=== PATIENT | female | born 1995 | race Caucasian/White ===

== ENCOUNTER 2023-06-25 09:53 | Emergency (ER) | payer OTHER, SELFPAY ==
[2023-06-25 09:54] VITALS: BP 115/73
--- NOTE | 2023-06-25 11:17 | ED.GENMED ---
History of Present Illness
General
Chief Complaint: Abdominal Symptoms
Source: patient
Exam Limitations: none
Time Seen by Provider: 06/25/23 10:31
Travel History
Have you had any contact with someone who has COVID-19?: No
Do you have any symptoms of coronavirus? Fever > 100 degrees, chills, cough, shortness of breath, sore throat, loss of taste or smell, muscle aches, or headache?: No
History of Present Illness
History of Present Illness:
Vomiting and diarrhea. Significant overnight. Family member with similar symptoms early in the week. , 10 weeks . No significant issues. Does not feel like morning sickness. Denies significant abdominal pain. No vaginal
bleeding. No unusual food ingestion or travel history. No recent antibiotics.
Past History
Past History
ED Past Medical History: None
ED Past Surgical History: Other ([place] teeth extraction)
Review of Systems
Review of Systems
All Other Systems: Not applicable
Constitutional: Denies fever
ABD/GI: Denies abdominal pain
: Reports no symptoms
Phy Exam
Physical Exam
Physical Exam:
GENERAL: Alert and oriented in no apparent distress
EYE: Orbits normal.
NECK: Supple
CARDIAC: Regular rate and rhythm without any obvious murmurs.
LUNGS: Clear breath sounds,normal
ABDOMEN: Soft, without focal tenderness or distention
NEUROLOGICAL: Alert and oriented , grossly non-focal
SKIN: Warm and dry, no rash or lesion, no discoloration, skin intact.
MUSCULOSKELETAL: No edema,no deformity.Good color
PSYCH: Normal and appropriate interaction.
Course
Orders/Labs/Results
Orders:
Orders
06/25/23 11:01
IV Insert/Care/Rem.- Treatment PRN
0.9% Sodium Chloride 1000 ml [Nss] 1,000 ml IV BOLUS
0.9% Sodium Chloride 1000 ml [Nss] 1,000 ml IV BOLUS
06/25/23 11:03
US 1st Trimester Urgent
Comment:
Reason For Exam: Abdominal pain/10 weeks
06/25/23 11:22
Complete Blood Count/With Diff Urgent
Comprehensive Metabolic Panel Urgent
Free T4 Urgent
Lipase Urgent
TSH Reflex To Free T4 Urgent
06/25/23 12:17
Metoclopramide [Reglan] 10 mg IV NOW STA
Abnormal Lab Results
06/25/23
11:22
Absolute Neuts (auto) 9.0 H 10^3/uL
(1.4-6.5)
Absolute Lymphs (auto) 0.3 L 10^3/uL
(1.2-3.4)
Neutrophils % 93.1 H %
(42.2-75.2)
Lymphocytes % 3.1 L %
(20.5-51.1)
Sodium 132 L mmol/L
(135-145)
Creatinine 0.5 L mg/dL
(0.6-1.0)
Glucose 103 H mg/dl
(70-99)
Total Bilirubin 1.8 H mg/dl
(0.2-1.3)
TSH (Reflex) 0.25 L uIU/ml
(0.47-4.68)
06/25/23 11:22
06/25/23 11:22
Vital Signs
Initial and Last Documented VS:
Initial Vital Signs
Temp Pulse Resp BP Pulse Ox
98.6 F 114 18 115/73 98
06/25/23 09:54 06/25/23 09:54 06/25/23 09:54 06/25/23 09:54 06/25/23 09:54
Last Documented Vital Signs
Temp Pulse Resp BP Pulse Ox
100 F 97 16 119/72 98
06/25/23 13:36 06/25/23 16:10 06/25/23 16:10 06/25/23 16:10 06/25/23 16:10
MDM/Problems Addressed
Differential Diagnosis Includes:
Likely all viral gastroenteritis. Not consistent with morning sickness. Nonsurgical abdomen. Doubt direct SOUR BLEACHING PLEATER issue. Fluids antinausea manage medications stool culture
*Critical Care Note
Total Time (30-74mins, 75-104mins- exclusive of procedures): Not Applicable
Update Note
Update Note:
BP 119/72. Patient feels well.. Updated on ultrasound. Stable for discharge to follow-up
ED Attending Note
-
Portions of this chart may have been created with voice recognition software.� Occasional wrong word or��sound alike� substitutions may have occurred due to the inherent limitations of voice recognition software.
Discharge Plan
Departure
Patient Disposition: Home (Routine Discharge)
Date of Disposition: 06/25/23
Time of Disposition: 15:55
Patient with high blood pressure during this ER visit?: No
Discharge Problem:
Gastroenteritis, Intrauterine , Small subchorionic hemorrhage
Instructions: Diarrhea in adolescents and adults, Nausea and Vomiting, Adult (DC), Subchorionic Bleeding
Prescriptions:
No Action
vit-iron fum-folic ac [ Tablet] 28 mg iron- 800 mcg Tablet
1 tab PO DAILY
ibuprofen 600 mg Tablet
600 mg PO Q4HPRN PRN (Reason: moderate pain/cramps) Qty: 0 0RF
Referrals:
Stephanie Kelley MD [Family Provider] - Follow up in 2-3 days
Interventions
Interventions:
*Risk Screen - Suicide Last Done: 06/25/23 16:11
*General Assessment Last Done: 06/25/23 12:00
*Neglect/Abuse Screening Last Done: 06/25/23 12:00
ED- Fall Risk Assessment Last Done: 06/25/23 16:11
*ED COVID-19 Vaccine History Last Done: 06/25/23 16:11
*Nursing Disposition Last Done: 06/25/23 16:11
PH-Bxrbou-Fzfdzrjtlb Assessment Last Done: 06/25/23 12:00
Discharge Date and Time
Discharge Date/Time: 06/25/23 16:12
[2023-06-25] MEDS: NSS 1000 IV ×2 (11:23→13:42)
[2023-06-25 11:33] LABS: % Basophils 0.2 % (0-2); % Immature Granulocytes 0.3 % (0-0.5); % Lymphocytes 3.1 % (20.5-51.1); % Monocytes 3.3 % (1.7-9.3); % Neutrophils 93.1 % (42.2-75.2); Absolute Lymphocytes 0.3 10^3/uL (1.2-3.4); Absolute Monocytes 0.3 10^3/uL (0.1-0.6); Hemoglobin 13.5 g/dL (12.0-16.0); Mean Corp Hgb Conc. 34.6 g/dL (33.0-37.0); Mean Corpuscular Hgb 30.3 pg (27.0-31.0); Mean Corpuscular Volume 87.4 fL (81.0-99.0); Mean Platelet Volume 9.3 fL (7.4-10.4); Nucleated Red Blood Cells % 0 %; Platelet Count 242 10^3/uL (130-400); Red Blood Cell Count 4.46 10^6/uL (4.20-5.40); Red Cell Dist. Width 11.6 % (11.5-14.5); White Blood Cell Count 9.6 10^3/uL (4.8-10.8)
[2023-06-25 11:42] LABS: ALT (SGPT) 18 U/L (0-35); AST (SGOT) 19 U/L (14-36); Albumin 4.2 g/dl (3.5-5.0); Alkaline Phosphatase 81 U/L (38-126); Blood Urea Nitrogen 10 mg/dl (7-17); Calcium 8.8 mg/dl (8.4-10.2); Carbon Dioxide 22 mmol/L (22-30); Chloride 102 mmol/L (98-107); Glucose 103 mg/dl (70-99); Lipase 57 U/L (23-300); Potassium 3.8 mmol/L (3.5-5.1); Sodium 132 mmol/L (135-145); Total Bilirubin 1.8 mg/dl (0.2-1.3); Total Protein 6.8 g/dl (6.3-8.2); eGFR > 60.00
[2023-06-25 12:15] LABS: TSH Reflex To Free T4 0.25 uIU/ml (0.47-4.68)
[2023-06-25 12:44] LABS: Free T4 1.01 ng/dl (0.78-2.19)
[2023-06-25] MEDS: REGLAN 10 MG IV (13:06)
[2023-06-25 13:36] VITALS: BP 92/53
[2023-06-25 16:10] VITALS: BP 119/72
== END 2023-06-25 16:12 | disposition home or self-care (01) ==
LOC: EMR 09:53
PROVIDERS: EMERGENCY PHYSICIAN Emergency Medicine; FAMILY PHYSICIAN Obstetrics & Gynecology
DX: O26.891 Other specified pregnancy related conditions, first trimester (principal); O21.9 Vomiting of pregnancy, unspecified; O20.8 Other hemorrhage in early pregnancy; Z3A.10 10 weeks gestation of pregnancy; K52.9 Noninfective gastroenteritis and colitis, unspecified; R19.7 Diarrhea, unspecified
CPT/HCPCS: 99284; 96374; 96361 ×5; 76801; 80053; 83690; 84439; 84443; 85025

== ENCOUNTER → 2023-07-19 11:01 | Outpatient (REF) | payer OTHER, SELFPAY | LOC: PNTC 11:01 | PROVIDERS: ATTENDING PHYSICIAN Obstetrics & Gynecology | DX: Z36.0 Encounter for antenatal screening for chromosomal anomalies (principal); Z36.82 Encounter for antenatal screening for nuchal translucency | CPT/HCPCS: 76801; 76813 ==

== ENCOUNTER 2024-01-01 09:52 | Observation (INO) | payer OTHER, SELFPAY ==
[2024-01-01 10:07] VITALS: BP 101/56; BMI 29.7
[2024-01-01] MEDS: TYLENOL 1000 MG PO (10:18)
[2024-01-01] MEDS: LR 1000 IV (10:30)
[2024-01-01 10:46] LABS: % Basophils 0.5 % (0-2); % Eosinophils 0.1 % (0-6); % Immature Granulocytes 0.4 % (0-0.5); % Lymphocytes 19.3 % (20.5-51.1); % Monocytes 8.4 % (1.7-9.3); % Neutrophils 71.3 % (42.2-75.2); Absolute Basophils 0.1 10^3/uL (0-0.2); Absolute Lymphocytes 1.8 10^3/uL (1.2-3.4); Absolute Monocytes 0.8 10^3/uL (0.1-0.6); Absolute Neutrophils 6.8 10^3/uL (1.4-6.5); Hematocrit 31.6 % (37.0-47.0); Hemoglobin 10.7 g/dL (12.0-16.0); Mean Corp Hgb Conc. 33.9 g/dL (33.0-37.0); Mean Corpuscular Hgb 27.9 pg (27.0-31.0); Mean Corpuscular Volume 82.3 fL (81.0-99.0); Mean Platelet Volume 10.3 fL (7.4-10.4); Nucleated Red Blood Cells % 0 %; Platelet Count 207 10^3/uL (130-400); Red Blood Cell Count 3.84 10^6/uL (4.20-5.40); Red Cell Dist. Width 13.4 % (11.5-14.5); White Blood Cell Count 9.5 10^3/uL (4.8-10.8)
[2024-01-01 11:04] LABS: ALT (SGPT) 13 U/L (0-35); AST (SGOT) 19 U/L (14-36); Albumin 3.3 g/dl (3.5-5.0); Alkaline Phosphatase 134 U/L (38-126); Blood Urea Nitrogen 10 mg/dl (7-17); Calcium 8.7 mg/dl (8.4-10.2); Carbon Dioxide 18 mmol/L (22-30); Chloride 106 mmol/L (98-107); Estimated Creatinine Clearance > 125 ml/min; Glucose 89 mg/dl (70-99); Sodium 137 mmol/L (135-145); Total Bilirubin 0.7 mg/dl (0.2-1.3); Total Protein 5.8 g/dl (6.3-8.2); eGFR > 60.00
[2024-01-01 11:07] LABS: Uric Acid 4.5 mg/dl (2.5-6.2)
[2024-01-01] MEDS: BENADRYL 50.5 MG IV (11:13)
[2024-01-01] MEDS: REGLAN 10 MG IV (11:13)
[2024-01-01 11:29] LABS: Urine Albumin Negative (Neg - Trace); Urine Bilirubin Negative (Negative); Urine Character Clear (Clear); Urine Color Yellow; Urine Glucose Negative (Negative); Urine Ketone Negative (Negative); Urine Leukocyte 1+ (Negative); Urine Nitrite Negative (Negative); Urine Occult Blood Negative (Negative); Urine Urobilinogen Negative (Neg - 1+); Urine pH 6.5 (5.0-9.0)
[2024-01-01 11:56] LABS: Protein/creatinine Ratio 0.1; Urine Protein 7 mg/dl
[2024-01-01 12:04] LABS: Urine Bacteria Few (Negative); Urine Red Blood Cell None Seen /HPF (0-2)
== END 2024-01-01 15:12 | disposition home or self-care (01) ==
LOC: LDRP 09:52
PROVIDERS: ADMITTING PHYSICIAN Student in an Organized Health Care Education/Training Program
DX: R51.9 Headache, unspecified (principal); O99.820 Streptococcus B carrier state complicating pregnancy; Z3A.37 37 weeks gestation of pregnancy
CPT/HCPCS: 59025; 80053; 81003; 81015; 82570; 84156; 84550; 85025; 86850; 86900; 86901; G0378

== ENCOUNTER 2024-01-11 08:21 | Inpatient (IN) | payer OTHER, SELFPAY ==
[2024-01-11 08:31] VITALS: BMI 29.7
[2024-01-11 08:32] VITALS: BP 122/82
[2024-01-11 08:52] LABS: Hematocrit 36.4 % (37.0-47.0); Mean Corpuscular Hgb 27.5 pg (27.0-31.0); Mean Corpuscular Volume 83.3 fL (81.0-99.0); Mean Platelet Volume 10.6 fL (7.4-10.4); Platelet Count 233 10^3/uL (130-400); Red Blood Cell Count 4.37 10^6/uL (4.20-5.40); Red Cell Dist. Width 13.6 % (11.5-14.5); White Blood Cell Count 6.3 10^3/uL (4.8-10.8)
[2024-01-11] MEDS: LR 1000 IV ×3 (09:44→13:12)
[2024-01-11] MEDS: BICITRA 30 ML PO (10:12)
[2024-01-11] MEDS: TYLENOL 1000 MG PO (10:12)
[2024-01-11] MEDS: ANCEF 10 IV (10:26)
--- NOTE | 2024-01-11 15:08 | OR.RPT ---
Operative Report
Operative Report
Preop diagnosis: IUP @39.0, history shoulder dystocia, suspected macrosomia
Postop diagnosis: same
Procedure: Primary low transverse section
Surgeon: Dana
Anesthesia: Spinal Dr. Yun
QBL: 650mL
Findings: Viable male infant born @1106, weighing 9lb 10oz, with Apgars of 8 and 9. Difficulty delivering head secondary to macrosomia. Vacuum applied with one pull and no pop offs. Normal appearing uterus, fallopian tubes, and ovaries.
Hematoma on left side of hysterotomy stable in size.
Lucero: clear yellow
Complications: none
Counts correct times 2
Patient transferred to recovery in stable condition
Indication: Patient is a 28yo at 39.0 weeks who presented to Labor and Delivery for scheduled elective primary section. She has a history of a shoulder dystocia in her prior delivery with infant weighing 9lb 4oz. EFW for this
was in the 90%tile with AC >97%tile. Patient was counseled on proceeding with vaginal delivery with induction at 39wks vs proceeding with elective PLTCS. Risks, benefits, and alternatives to each were discussed and all questions answered.
Patient elected to proceed with PLTCS. Consents were signed and on the chart.
Procedure: Patient was taken to the operating room where spinal anesthesia was administered and found to be adequate. 2g of Ancef were given for infection prophylaxis. The abdomen was prepped with ChloraPrep. The patient was draped in the normal
sterile fashion. She was placed in the dorsal supine position with a left lateral tilt. A Pfannenstiel incision was made with a 10 blade and carried down to the fascia with a scalpel. Hemostasis achieved with Bovie. The fascia was incised and
dissected laterally with Matos scissors. The superior aspect of the fascia was grasped with Gilmar clamps. The underlying rectus fascia was sharply dissected with Matos scissors. In a similar fashion the inferior aspect of the fascia was elevated with
Gilmar clamps and the rectus muscle was dissected off. The rectus muscles were down the midline to the level of the pubic symphysis with manual dissection. The peritoneum was bluntly entered and extended with manual traction.
[place] retractor and bladder blade were placed revealing good visualization of the bladder. The vesicouterine peritoneum was identified. A thin lower uterine segment was noted. The lower uterine segment was incised with a scalpel. Clear fluid
noted at entry into the cavity. The uterine incision was extended bluntly with lateral and upward traction.
The fetus was in cephalic presentation. The head was elevated out of the pelvis with special attention paid to avoid using the uterine incision as a fulcrum. Gentle fundal pressure was applied one the head was brought to the incision. There was
difficulty delivering the head. Vacuum was applied to head to assist in delivery with one pull and no pop offs. The head then delivered through the hysterotomy and the rest of the delivered without difficulty. Delayed cord
clamping was performed. The was handed off to the turpentine distiller. Cord blood was collected. IV oxytocin was started to facilitate uterine contractions. The placenta was delivered with gentle traction and uterine fundal massage. The uterus was
exteriorized. Allis clamps were placed at the apices of the hysterotomy. The inside of the uterus was wiped with a lap sponge to assure complete removal of placental membranes. Fundal massage was performed and uterus noted to be firm. The uterine
incision was closed with 0 Vicryl in a running locked fashion. A horizontal imbricating stitch was done on the hysterotomy. Oozing noted from the left corner of the hysterotomy and surgicel was placed to aid in hemostasis. Small oozing vessels from
the lower edge of the hysterotomy were cauterized with the Bovie. The uterus was placed back in the abdomen. While the uterus was placed back in the abdomen, the surgicel fell off. The left corner of the hysterotomy was inspected and was hemostatic.
There was a hematoma on the superior aspect of the hysterotomy towards the left corner that had not expanded. Hematoma was watched and no expansion noted. The hysterotomy was inspected and noted to be hemostatic. Blood clots and fluid were wiped out
of the abdomen and pelvis with moist laparotomy sponges. The hysterotomy was examined again and noted to be hemostatic.
The rectus muscles were inspected and noted to be hemostatic. The fascial layer was closed in a running continuous fashion using 0-Vicryl. The subcutaneous tissue was copiously irrigated and any small bleeding vessels were cauterized with Bovie
cautery. The subcutaneous tissue was reapproximated in a running continuous fashion with 2-0 Plain. The skin was closed with 4-0 Vicryl in a subcuticular fashion. The incision was covered with skin glue. The patient tolerated the procedure well. All
sponge and instrument counts were correct times two. The patient was taken to the recovery room in stable condition.
[2024-01-11] MEDS: NSS 1000 IV (15:30)
[2024-01-11 16:17] LABS: Hematocrit 31.4 % (37.0-47.0); Hemoglobin 10.4 g/dL (12.0-16.0); Mean Corp Hgb Conc. 33.1 g/dL (33.0-37.0); Mean Corpuscular Volume 84.6 fL (81.0-99.0); Mean Platelet Volume 10.6 fL (7.4-10.4); Platelet Count 202 10^3/uL (130-400); Red Blood Cell Count 3.71 10^6/uL (4.20-5.40); Red Cell Dist. Width 13.3 % (11.5-14.5); White Blood Cell Count 16.8 10^3/uL (4.8-10.8)
[2024-01-11 16:32] LABS: Blood Urea Nitrogen 11 mg/dl (7-17); Calcium 7.8 mg/dl (8.4-10.2); Carbon Dioxide 18 mmol/L (22-30); Chloride 104 mmol/L (98-107); Estimated Creatinine Clearance > 125 ml/min; Glucose 164 mg/dl (70-99); Potassium 4.2 mmol/L (3.5-5.1); Sodium 133 mmol/L (135-145); eGFR > 60.00
[2024-01-11] MEDS: TORADOL 15 MG IV ×2 (17:40→23:54)
[2024-01-11] MEDS: PERCOCET 5/325 1 TABLET PO ×2 (18:22→23:53)
[2024-01-11] MEDS: SENOKOT-S 1 TABLET PO (20:00)
[2024-01-12] MEDS: TORADOL 15 MG IV ×2 (05:30→11:41)
[2024-01-12] MEDS: FLUSH (NSS) 3 FLUSH IV (05:30)
[2024-01-12 05:33] LABS: Hematocrit 25.9 % (37.0-47.0); Hemoglobin 8.6 g/dL (12.0-16.0); Mean Corp Hgb Conc. 33.2 g/dL (33.0-37.0); Mean Corpuscular Hgb 28.5 pg (27.0-31.0); Mean Corpuscular Volume 85.8 fL (81.0-99.0); Mean Platelet Volume 10.7 fL (7.4-10.4); Platelet Count 163 10^3/uL (130-400); Red Blood Cell Count 3.02 10^6/uL (4.20-5.40); Red Cell Dist. Width 13.3 % (11.5-14.5); White Blood Cell Count 12.2 10^3/uL (4.8-10.8)
[2024-01-12] MEDS: BENADRYL 25 MG PO (05:38)
[2024-01-12] MEDS: FEOSOL 325 MG PO (08:02)
[2024-01-12] MEDS: MYLICON 80 MG PO ×2 (08:02→14:03)
[2024-01-12] MEDS: PRENATAL PLUS 1 TABLET PO (08:02)
[2024-01-12] MEDS: PERCOCET 5/325 1 TABLET PO ×2 (08:02→14:03)
[2024-01-12] MEDS: FEOSOL PO (10:38)
[2024-01-12] MEDS: TYLENOL 650 MG PO (18:15)
[2024-01-12] MEDS: MOTRIN 600 MG PO (18:15)
[2024-01-13] MEDS: PERCOCET 5/325 1 TABLET PO ×3 (00:11→13:35)
[2024-01-13] MEDS: MOTRIN 600 MG PO ×3 (00:15→13:25)
[2024-01-13] MEDS: FEOSOL 325 MG PO (08:07)
[2024-01-13] MEDS: PRENATAL PLUS 1 TABLET PO (08:07)
[2024-01-13] MEDS: MYLICON 80 MG PO (08:21)
[2024-01-13] MEDS: SENOKOT-S 1 TABLET PO (08:21)
[2024-01-13 11:21] LABS: Syphilis/T. pallidum Ab Reflex Negative (Negative)
== END 2024-01-13 16:14 | disposition home or self-care (01) | DRG 788 ==
LOC: LDRP 08:21
PROVIDERS: ADMITTING PHYSICIAN Student in an Organized Health Care Education/Training Program
PROC: 10D00Z1 Extraction of Products of Conception, Low, Open Approach (ICD-10-PCS; 2024-01-11)
DX: O34.211 Maternal care for low transverse scar from previous cesarean delivery (principal); O99.824 Streptococcus B carrier state complicating childbirth; O36.63X0 Maternal care for excessive fetal growth, third trimester, not applicable or unspecified; Z3A.39 39 weeks gestation of pregnancy; Z37.0 Single live birth; N85.8 Other specified noninflammatory disorders of uterus
CPT/HCPCS: 80048; 85027; 86780; 86850; 86900; 86901